=== PATIENT | female | born 1990 | race Caucasian/White ===

== ENCOUNTER → 2017-09-30 | Outpatient (CLI) | payer BC | LOC: COL.RAD 12:59 | DX: N85.8 Other specified noninflammatory disorders of uterus (principal); R11.0 Nausea ==

== ENCOUNTER 2018-09-18 03:13 | Emergency (ER) | payer OTHER ==
[~2018-09-18] VITALS: Ht 160 cm; Wt 61.8 kg
[2018-09-18 03:17] VITALS: TEMP 98.2
[2018-09-18 03:54] LABS: BASO % 0.3 % (0.0-2.0); EOS # 0.2 (0.0-0.7); EOS % 2.4 % (0-4.0); GRAN # 4.5 (1.4-6.5); GRAN % 52.2 % (42.2-75.2); HEMATOCRIT 37.3 % (37.0-47.0); HEMOGLOBIN 12.5 g/dl (12.5-16.0); LYMPH # 3.2 (1.2-3.4); LYMPH % 36.5 % (20.0-51.0); MEAN CELL VOLUME 90 fl (80.0-100.0); MEAN CORPUSCULAR HEMOGLOBIN 30 pg (27.0-31.0); MEAN CORPUSCULAR HGB CONC 34 g/dl (33.0-37.0); MONO # 0.7 (0.1-0.6); MONO % 8.3 % (1.7-9.3); PLATELET COUNT 240 K/mm3 (130-400); RED BLOOD COUNT 4.14 M/mm3 (4.10-5.30); REDCELL DISTRIBUTION WIDTH-CV 12.3 % (11.5-14.5)
[2018-09-18 04:00] LABS: COLLECTION METHOD CLEAN CATCH
[2018-09-18 04:05] LABS: PH 6 (5-8); SQUAMOUS EPITHELIAL None Seen /hpf; URINE APPEARANCE Clear; URINE BACTERIA None Seen /hpf; URINE BILIRUBIN Negative (NEGATIVE); URINE BLOOD 2+ (NEGATIVE); URINE COLOR Straw; URINE GLUCOSE Negative (NEGATIVE); URINE KETONE Negative (NEGATIVE); URINE LEUKOCYTE ESTERASE Negative (NEGATIVE); URINE NITRATE Negative (NEGATIVE); URINE PROTEIN(semi-quant) Negative (NEGATIVE); URINE RBC None Seen /hpf; URINE UROBILINOGEN Negative (NEGATIVE)
[2018-09-18 04:15] LABS: ALBUMIN 4.2 gm/dL (3.5-5.0); BILIRUBIN,TOTAL 0.3 mg/dL (0.0-1.0); CALCIUM 9.1 mg/dL (8.4-10.2); CREATININE, serum 0.62 mg/dL (0.52-1.25); POTASSIUM 3.6 mmol/L (3.4-5.0); TOTAL PROTEIN 7.4 gm/dL (6.4-8.2)
[2018-09-18 07:58] VITALS: BP 109/80; PULSE 70
== END 2018-09-18 07:45 | disposition home or self-care (01) ==
LOC: COL.ER 03:13
PROVIDERS: Emergency Medicine
DX: O03.9 Complete or unspecified spontaneous abortion without complication (principal); R10.2 Pelvic and perineal pain

== ENCOUNTER 2019-01-19 21:36 | Emergency (ER) | payer OTHER ==
[~2019-01-19] VITALS: Ht 160 cm; Wt 69.1 kg
[2019-01-19 21:42] VITALS: BP 130/69; TEMP 97.5
[2019-01-19 22:21] LABS: COLLECTION METHOD CLEAN CATCH
[2019-01-19] MEDS ORDERED: PRENATAL VIT (22:23)
[2019-01-19 22:24] LABS: BASO % 0.2 % (0.0-2.0); EOS # 0.2 (0.0-0.7); EOS % 1.4 % (0-4.0); GRAN # 7.9 (1.4-6.5); GRAN % 72.6 % (42.2-75.2); HEMOGLOBIN 11.1 g/dl (12.5-16.0); LYMPH # 2.1 (1.2-3.4); LYMPH % 19.7 % (20.0-51.0); MEAN CELL VOLUME 92 fl (80.0-100.0); MEAN CORPUSCULAR HEMOGLOBIN 31 pg (27.0-31.0); MEAN CORPUSCULAR HGB CONC 33 g/dl (33.0-37.0); MEAN PLATELET VOLUME 11.7 fl (7.4-10.4); MONO # 0.6 (0.1-0.6); MONO % 5.5 % (1.7-9.3); PLATELET COUNT 206 K/mm3 (130-400); RED BLOOD COUNT 3.61 M/mm3 (4.10-5.30); REDCELL DISTRIBUTION WIDTH-CV 13.2 % (11.5-14.5)
[2019-01-19 22:25] LABS: HEMATOCRIT 33.3 % (37.0-47.0)
[2019-01-19 22:27] LABS: PH 7 (5-8); SQUAMOUS EPITHELIAL 0-2 /hpf; URINE APPEARANCE Clear; URINE BACTERIA Rare /hpf; URINE BILIRUBIN Negative (NEGATIVE); URINE BLOOD Negative (NEGATIVE); URINE COLOR Straw; URINE GLUCOSE Negative (NEGATIVE); URINE KETONE Trace (NEGATIVE); URINE LEUKOCYTE ESTERASE Negative (NEGATIVE); URINE NITRATE Negative (NEGATIVE); URINE PROTEIN(semi-quant) Negative (NEGATIVE); URINE RBC None Seen /hpf; URINE UROBILINOGEN Negative (NEGATIVE)
[2019-01-19 22:43] LABS: ALBUMIN 3.9 gm/dL (3.5-5.0); BILIRUBIN,TOTAL 0.3 mg/dL (0.0-1.0); C-REACTIVE PROTEIN 1.1 mg/dL (0.0-0.9); CALCIUM 9.2 mg/dL (8.4-10.2); CREATININE, serum 0.55 (0.52-1.25); POTASSIUM 3.7 mmol/L (3.4-5.0); TOTAL PROTEIN 7.4 gm/dL (6.4-8.2)
[2019-01-19 23:15] VITALS: PULSE 70
== END 2019-01-19 23:16 | disposition home or self-care (01) ==
LOC: COL.ER 21:36
PROVIDERS: Emergency Medicine
DX: O26.892 Other specified pregnancy related conditions, second trimester (principal); R10.9 Unspecified abdominal pain; Z3A.17 17 weeks gestation of pregnancy
CPT/HCPCS: J2270; J2550; J7030

== ENCOUNTER → 2019-01-20 | Outpatient (CLI) | payer OTHER ==
[~2019-01-20] MED LIST: PRENATAL VIT
== END ==
LOC: COL.RAD 08:53
DX: O99.89 Other specified diseases and conditions complicating pregnancy, childbirth and the puerperium (principal); R10.9 Unspecified abdominal pain; Z3A.00 Weeks of gestation of pregnancy not specified

== ENCOUNTER 2019-04-13 03:09 | Outpatient (CLI) | payer OTHER ==
[~2019-04-13] VITALS: Ht 160 cm; Wt 28.2 kg
--- NOTE | 2019-04-13 02:40 | NUR ---
HERE WITH FOB WITH C/O SHARP LOWER ABD PAIN CONSTANT- WORSE WITH MOVEMENT,FOR 27 HOURS. DENIES URINARY SX OR SPOTTONG, CERVIX LONG THICK CLOSED. EFM ON REACTIVE . NO UTERINE ACTIVEITY NOTED OR PALPATED. ACTIVE BABY. ATTENDED A [place] YESTERDAY AND IS ON FEET AT WORK. 0320 CCUA COLLECTED AFTER REPORT TO DR MACK
[2019-04-13 02:50] VITALS: BP 109/62; PULSE 72; TEMP 98.3
[2019-04-13 03:35] LABS: COLLECTION METHOD CLEAN CATCH
[2019-04-13 03:41] VITALS: BP 109/62; PULSE 72
[2019-04-13 03:42] LABS: MUCOUS Present /lpf; PH 7 (5-8); SQUAMOUS EPITHELIAL None Seen /hpf; URINE APPEARANCE Clear; URINE BACTERIA Rare /hpf; URINE BILIRUBIN Negative (NEGATIVE); URINE BLOOD Negative (NEGATIVE); URINE COLOR Straw; URINE GLUCOSE Negative (NEGATIVE); URINE KETONE Negative (NEGATIVE); URINE LEUKOCYTE ESTERASE Negative (NEGATIVE); URINE NITRATE Negative (NEGATIVE); URINE PROTEIN(semi-quant) Negative (NEGATIVE); URINE RBC None Seen /hpf; URINE UROBILINOGEN Negative (NEGATIVE); URINE WBC 0-2 /hpf
--- NOTE | 2019-04-13 03:50 | NUR ---
DISCHARGE INSTR REVIEWED WITH PT AD FOB- VERBALIZED UNDERSTANDING
== END 2019-04-13 04:00 | disposition home or self-care (01) ==
LOC: LDR 03:09 → LDRO 03:09 → LDR 03:10 → LDRO 04:00
PROVIDERS: Obstetrics & Gynecology
DX: O99.89 Other specified diseases and conditions complicating pregnancy, childbirth and the puerperium (principal); R10.30 Lower abdominal pain, unspecified; Z3A.29 29 weeks gestation of pregnancy

== ENCOUNTER 2019-07-01 17:12 | Outpatient (CLI) | payer OTHER ==
[~2019-07-01] VITALS: Ht 160 cm; Wt 81.4 kg
--- NOTE | 2019-07-01 17:10 | NUR ---
1710-G2L0 40.[address] Marcano's ambulatory to LR3 with complaints of decreased movement. Assisted into gown and placed on EFM. FHR baseline 140bpm with accelerations. Denies contractions or leaking of fluid or vaginal bleeding. Reports subtle movement while this RN in room and Audible FHR acceleration but "not like normal movement." Assessment complete. BP elevated 140/85. Reports headache this am and improved with oral tylenol 650mg at 1100. 1740-Notified MD of patient, see physician notification. Orders for CBC, CMP, UA.
[2019-07-01 17:19] VITALS: BP 140/85; PULSE 66; TEMP 98.5
[2019-07-01] MEDS ORDERED: VALTREX 50500 MG/TAB PO (17:26)
[2019-07-01] MEDS ORDERED: TYLENOL 325MG325 MG PO (17:26)
[2019-07-01 17:46] VITALS: BP 145/96; PULSE 72
[2019-07-01 18:00] VITALS: BP 145/93; PULSE 73
[2019-07-01 18:06] LABS: COLLECTION METHOD CLEAN CATCH
[2019-07-01 18:13] LABS: HEMOGLOBIN 11.1 g/dl (12.5-16.0); MEAN CELL VOLUME 90 fl (80.0-100.0); MEAN CORPUSCULAR HEMOGLOBIN 31 pg (27.0-31.0); MEAN CORPUSCULAR HGB CONC 34 g/dl (33.0-37.0); MEAN PLATELET VOLUME 12.6 fl (7.4-10.4); PLATELET COUNT 207 K/mm3 (130-400); RED BLOOD COUNT 3.63 M/mm3 (4.10-5.30); REDCELL DISTRIBUTION WIDTH-CV 13.8 % (11.5-14.5)
[2019-07-01 18:14] LABS: HEMATOCRIT 32.7 % (37.0-47.0)
[2019-07-01 18:16] VITALS: BP 136/78; PULSE 67
[2019-07-01 18:19] LABS: ALBUMIN 3.5 gm/dL (3.5-5.0); BILIRUBIN,TOTAL 0.2 mg/dL (0.0-1.0); CALCIUM 8.8 mg/dL (8.4-10.2); CREATININE, serum 0.6 (0.52-1.25); POTASSIUM 3.8 mmol/L (3.4-5.0); TOTAL PROTEIN 6.7 gm/dL (6.4-8.2)
--- NOTE | 2019-07-01 18:20 | NUR ---
Report received from Harman NEWSOME. 182: Pt off monitors to use restroom. 183: Lab results called to . See physican notification. Discharge orders receieved. 183: FHR strip reactive. Pt off monitors for discharge. 184: Discharge instructions given to pt. Questions and concerns answered. PT ambulatory off unit with spouse.
[2019-07-01 18:21] LABS: MUCOUS Present /lpf; PH 7 (5-8); SQUAMOUS EPITHELIAL 0-2 /hpf; URINE APPEARANCE Hazy; URINE BACTERIA Rare /hpf; URINE BILIRUBIN Negative (NEGATIVE); URINE BLOOD Negative (NEGATIVE); URINE COLOR Yellow; URINE GLUCOSE Negative (NEGATIVE); URINE KETONE Negative (NEGATIVE); URINE LEUKOCYTE ESTERASE 1+ (NEGATIVE); URINE NITRATE Negative (NEGATIVE); URINE PROTEIN(semi-quant) Negative (NEGATIVE); URINE RBC 0-2 /hpf; URINE UROBILINOGEN Negative (NEGATIVE)
[2019-07-01 18:30] VITALS: BP 159/83; PULSE 83; TEMP 98.8
[2019-07-01 18:34] VITALS: BP 136/83; BP 140/82; PULSE 65; PULSE 78
== END 2019-07-01 18:45 | disposition home or self-care (01) ==
LOC: LDRO 17:12 → LDR 17:40 → LDRO 18:45
PROVIDERS: Obstetrics & Gynecology
DX: O36.8130 Decreased fetal movements, third trimester, not applicable or unspecified (principal); Z3A.40 40 weeks gestation of pregnancy
CPT/HCPCS: OP

== ENCOUNTER 2019-07-02 18:44 | Inpatient (IN) | payer OTHER ==
[2019-07-02] VITALS (11 sets, daily range): BP systolic 119–155; BP diastolic 64–94; PULSE 73–91; TEMP 98.6–99.2
[~2019-07-02] VITALS: Ht 160 cm; Wt 81.4 kg
[~2019-07-02 18:44] MED LIST changes: +TYLENOL 325MG325 MG PO; +VALTREX 50500 MG/TAB PO
--- NOTE | 2019-07-02 18:50 | NUR ---
at 40 weeks and 6 days arrives to unit for scheduled induction of labor. Pt oriented to room, call light within reach, bed in low and locked position. Pt reports feeling good movement today, denies contractions, denies LOF, and denies vaginal bleeding. Pt reports headache today that was relieved with tylenol. Pt denies RUQ pain or changes in vision. Slight swelling to lower extremeties. US and toco explained and applied. Vital signs obtained. Admission assessment started. Plan of care reviewed with patient and significant other. 1914/-3, membrnes intact.
--- NOTE | 2019-07-02 19:30 | NUR ---
1929 - Consents reviewed and signed with patient. All questions answered 1939 - IV started in right forearm after 2 attempts. Admission labs obtained off IV start. Lactated Ringers infusing to gravity.
--- NOTE | 2019-07-02 20:00 | NUR ---
[place] showing contractions every 3-10 minutes. Pt denies feeling any uterine activity. Category 1 FHR tracing. 25 mcg Cytotec given orally. Pt and significant other updated on plan of care.
[2019-07-02 20:31] LABS: BASO % 0.3 % (0.0-2.0); EOS # 0.2 (0.0-0.7); EOS % 1.7 % (0-4.0); GRAN # 7.3 (1.4-6.5); HEMOGLOBIN 10.8 g/dl (12.5-16.0); LYMPH # 1.9 (1.2-3.4); MEAN CELL VOLUME 90 fl (80.0-100.0); MEAN CORPUSCULAR HEMOGLOBIN 30 pg (27.0-31.0); MEAN CORPUSCULAR HGB CONC 34 g/dl (33.0-37.0); MEAN PLATELET VOLUME 12.6 fl (7.4-10.4); MONO # 0.7 (0.1-0.6); MONO % 6.4 % (1.7-9.3); PLATELET COUNT 211 K/mm3 (130-400); RED BLOOD COUNT 3.58 M/mm3 (4.10-5.30); REDCELL DISTRIBUTION WIDTH-CV 13.7 % (11.5-14.5)
[2019-07-02 20:33] LABS: HEMATOCRIT 32.2 % (37.0-47.0)
--- NOTE | 2019-07-02 20:45 | NUR ---
Category 1 FHR tracing. Monitors removed. Pt up to bathroom to void.
--- NOTE | 2019-07-02 22:05 | NUR ---
Category 1 FHR tracing. Monitors removed, patient up to bathroom.
[2019-07-03] VITALS (67 sets, daily range): BP systolic 12–166; BP diastolic 56–106; PULSE 55–120; TEMP 97.8–99.3
--- NOTE | 2019-07-03 | NUR ---
Category 1 FHR tracing. [place] showing contractions every 1-6 minutes, pt denies feeling contractions. Monitors removed, pt up to bathroom. 25 mcg cytotec given orally, see MAR.
--- NOTE | 2019-07-03 01:30 | NUR ---
Category 1 FHR tracing. Monitors removed, pt up to bathroom to void.
--- NOTE | 2019-07-03 02:05 | NUR ---
Category 1 FHR tracing. Monitors removed, pt up to bathroom to void.
--- NOTE | 2019-07-03 03:15 | NUR ---
Category 1 FHR tracing. Monitors removed, pt up to bathroom to void.
--- NOTE | 2019-07-03 04:00 | NUR ---
Category 1 FHR tracing. Monitors removed for patient to shower and eat prior to starting pitocin.
--- NOTE | 2019-07-03 05:06 | NUR ---
Category 1 FHR tracing obtained. Pitocin initiated at 2 mL/hr at this time, see MAR.
--- NOTE | 2019-07-03 05:30 | NUR ---
Category 1 FHR tracing. Monitors removed, pt up to bathroom to void.
--- NOTE | 2019-07-03 06:00 | NUR ---
Category 1 FHR tracing. Monitors removed. Pt up to bathroom to void.
--- NOTE | 2019-07-03 07:30 | NUR ---
Pt breathing through contractions and requesting epidural. Anethesia providers in surgery at this time and will notify. Pt to bathroom, voids. Pt standing at bedside. 0815:Shannon cattle and wheat farmer here. Pt sitting up in bed. IVF bolus started. Single shot given at 0829, pt tolerated well. See anesthesia notes. Intermittent maternal pulse tracing, EFM repositioned and FHR 150's bpm.
--- NOTE | 2019-07-03 08:45 | NUR ---
Dr Marcano here and reviewing FHR monitor strip. Intermittent tachycardia, no new orders by physician, will continue to monitor. 0850:AROM, clear fluid noted. SVE: 380/-2. Pt comfortable with epidural.
--- NOTE | 2019-07-03 09:33 | NUR ---
FHR decreased to 120bpm for 2 minutes then increasing to 150-155bpm. Dr Marcano here and monitoring FHR. Orders to continue to monitor at this time. 1000:Recurrent late decelerations noted. Pt repositioned to right lateral and peanut ball in place. SVE: 3-4/80/-2. Positive scalp stimulation noted on exam. 1010:No further late decelerations, Early decelerations now noted. 1040:FHR reactive, no further decelerations noted.
--- NOTE | 2019-07-03 11:50 | NUR ---
Pt repositioned to left lateral with peanut ball. Recurrent decelerations noted, late onset but FHR back to baseline before end of contractions. 1159:FHR to 120bpm for 3 minutes then increases again to 140bpm. Dr Marcano here and evaluating FHR. Will continue to monitor at this time. 1205: Pt repositioned to sitting up position. Dr Marcano will check patient after scheduled surgery and evaluate.
--- NOTE | 2019-07-03 12:50 | NUR ---
Dr Marcano reviews FHR monitor strip at this time. No new orders, continue plan of care. SVE by physician. /3. Pericare done and pt repositioned to right lateral.
--- NOTE | 2019-07-03 14:15 | NUR ---
Pt sitting up in bed vomiting, 50ml emesis. SVE: /-2. Positive scalp stimulation noted. FHR with recurrent early decelerations noted. Pt feeling pressure and pain with contractions after using TANK HOUSE OPERATOR button for epidural. Shannon HOLBROOK called to notify. 1430:Shannon HOLBROOK at bedside and 4mg Zofran given IVPB.
--- NOTE | 2019-07-03 16:20 | NUR ---
Pt feeling pain and pressure again with contractions. Pt crying in bed. Pt has pushed HUMANITIES INSTRUCTOR button for epidural and states no relief. Shannon WELDER SETTER ELECTRON BEAM MACHINE here and at bedside. See anesthesia notes. 1635:Pt now comfortable and tolerates contraction pain.
--- NOTE | 2019-07-03 16:45 | NUR ---
Dr Marcano here and reviews FHR monitor strip. 1650:At bedside and SVE: 6/100/-2 caput noted on exam by physician. Physician reviews options with pt and . Physician will give pt another hour and recheck cervix if desires or may have a c/section now. 1700:Pt requesting c/section now instead of waiting. Pt prepped for delivery. pre-op checklist complete. Pt feeling pain with contractions Shannon COMPUTER SUPPORT TECHNICIAN notified and at bedside. 1706:Pt to OR. Decision made to take epidural out and perform spinal. Pt to EFM in OR, FHR 140bpm with moderate variability noted.
--- NOTE | 2019-07-03 23:38 | NUR ---
I took over pt's care at 2200 from Elise Damon
[2019-07-04 05:00] VITALS: BP 126/79; PULSE 90; TEMP 98.7
[2019-07-04 07:15] VITALS: BP 134/74; PULSE 82; TEMP 98.5
[2019-07-04 11:45] VITALS: BP 118/72; PULSE 88
[2019-07-04 16:05] VITALS: BP 126/72; PULSE 80; TEMP 97.8
[2019-07-04 21:30] VITALS: BP 131/89; PULSE 85; TEMP 97.8
[2019-07-05 07:37] VITALS: BP 130/78; PULSE 79; TEMP 98.4
[2019-07-05 16:12] VITALS: BP 124/68; PULSE 78; TEMP 97.8
[2019-07-05 21:50] VITALS: BP 119/81; PULSE 88; TEMP 97.7
[2019-07-06 06:35] VITALS: BP 137/85; PULSE 82; TEMP 97.7
--- NOTE | 2019-07-06 09:24 | NUR ---
Initial visit; Parents thanked Bulkhead Carpenter for offering congratulations and God's blessings for the of their daughter. Bulkhead Carpenter thanked family for choosing [facility].
[2019-07-06] MEDS ORDERED: IBU600 MG PO (10:28)
[2019-07-06] MEDS ORDERED: PERCOCET 325 MG1 TA2 PO (10:28)
--- NOTE | 2019-07-06 11:30 | NUR ---
Patient given discharge instructions and understands/signs papers. Infants bands off and checked in carseat. Questions answered. 1140: Ambulatory off unit with spouse and this RN
== END 2019-07-06 11:40 | disposition home or self-care (01) | DRG 788 ==
LOC: LDR 18:44 → OB 07-04 06:45
PROVIDERS: ADMIT Obstetrics & Gynecology
PROC: 10D00Z1 Extraction of Products of Conception, Low, Open Approach (ICD-10-PCS; principal; 2019-07-02)
DX: O48.0 Post-term pregnancy (principal); O99.824 Streptococcus B carrier state complicating childbirth; O62.1 Secondary uterine inertia; O13.4 Gestational [pregnancy-induced] hypertension without significant proteinuria, complicating childbirth; Z3A.41 41 weeks gestation of pregnancy; Z37.0 Single live birth; Z88.8 Allergy status to other drugs, medicaments and biological substances
CPT/HCPCS: J0690; J1200; J1885; J2175; J2370; J2405; J2590; J2765; J2795; J3010; J3370; J7050; J7120